=== PATIENT | female | born 1995 | race Caucasian/White ===

== ENCOUNTER 2016-10-06 18:06 | Emergency (ER) | payer OTHER ==
[2016-10-06 20:14] VITALS: BP 136/63; PULSE 122; TEMP 98.7; BMI 26.4
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
[2016-10-06] MEDS ORDERED: CYCLOBENZAPRINE 10 MG TAB PO ONE (21:38)
[2016-10-06] MEDS ORDERED: IBUPROFEN 600 MG TAB PO ONE (21:38)
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
== END 2016-10-06 21:44 | disposition home or self-care (01) ==
LOC: ED 18:06 → EDMC 21:44
DX: S16.1XXA Strain of muscle, fascia and tendon at neck level, initial encounter (principal); V43.52XA Car driver injured in collision with other type car in traffic accident, initial encounter
CPT/HCPCS: 72050; 99283; J3490